=== PATIENT | female | born 1955 | race Caucasian/White ===

== ENCOUNTER 2018-02-26 17:55 | Emergency (ER) | payer MEDICARE, OTHER ==
[2018-02-26] MEDS ORDERED: HYDROmorphone 2 MG/ML SDV IM ONE (18:15)
[2018-02-26] MEDS ORDERED: Ondansetron 4 MG Tab.DIS PO SCH (18:30)
[2018-02-26] MEDS ORDERED: Acetaminophen/HYDROcodone 325-5 MG Tab PO ONE (19:13)
--- NOTE | 2018-03-01 11:29 | CR ---
INDICATION: Fall onto to thenar eminence. Hematoma, pain proximal 1st metacarpal. FOREARM : Frontal and lateral views of the right forearm were obtained 6-18- no comparisons. A very minimal degree of hypertrophic changes noted at the medial elbow joint compartment comparable with very minimal osteoarthritis. There also appears to be mild osteoarthritic changes at the metacarpophalangeal joint. IMPERSSION: 1. No acute fracture or dislocation. 2. Minimal osteoarthritis. MTDD
--- NOTE | 2018-03-01 11:33 | CR ---
INDICATION: Fall onto to thenar eminence. Hematoma, pain proximal 1st metacarpal. HAND: Three views of the right hand were obtained and reveal osteoarthritic changes at the interphalangeal joint of the thumb of mild degree and minimally at the 1st metacarpal joint and 1st metacarpophalangeal joint. Minimal osteoarthritic changes are noted at the DIP joints of the 3rd and 4th fingers. A definite fracture or dislocation was not identified. No joint effusion was suggested. IMPRESSION: 1. No acute fracture or dislocation. 2. Mild osteoarthritis. MTDD
--- NOTE | 2018-03-01 15:19 | ER ---
DATE SEEN: 02/26/2018 TIME SEEN: The patient was seen at 1808 hours. HISTORY OF PRESENT ILLNESS: The patient missed the step at home and fell down to the right hand and contused her thenar eminence. PAST MEDICAL HISTORY: Nonsignificant. PAST SURGICAL HISTORY: Abdominal hysterectomy, bilateral salpingo-oophorectomy, and right hip surgery. ALLERGIES: The patient is allergic to pollen and bee stings. MEDICATIONS: Levothyroxine for hypothyroidism. REVIEW OF SYSTEMS: Otherwise negative. SOCIAL HISTORY: The patient is a nonsmoker. PHYSICAL EXAMINATION: VITAL SIGNS: Blood pressure 144/72, heart rate 79 and regular, respirations 18, oxygen saturation 98%, 68.03 kilos with a BMI of 27.4 kg/m2. GENERAL: Alert woman, in mild distress, mild discomfort. She has a hematoma in her right palm of her hand. HEENT: PERRLA intact. Pharynx without abnormality. LUNGS: Clear without rales, rhonchi, or wheezes. HEART: S1, S2. No murmur. No irregular rate and rhythm. ABDOMEN: Soft. No guarding. No abdominal discomfort. EXTREMITIES: Right upper extremity, no pain in the distal radius, but has pain on the thenar eminence. No dysesthesia of fingers. Range of motion is decreased with a hematoma in the palmar surface. DIAGNOSTIC STUDIES: X-ray does not reveal fracture of hand or distal radius. DIAGNOSIS: Hematoma of right thenar eminence. PLAN: Return to clinic as needed, otherwise in a week to 10 days earlier if worse. She has Vicodin 8 tablets dispense, 1 every 4-6 hours for breakthrough pain, 1000 mg of Tylenol and 600 mg of ibuprofen taken every 6 hours. Elevate ice, and gradually increase the use of her hand as tolerated. /[id number]
== END 2018-02-26 19:25 | disposition home or self-care (01) ==
LOC: FB.ED 17:55
DX: S60.221A Contusion of right hand, initial encounter (principal); W10.9XXA Fall (on) (from) unspecified stairs and steps, initial encounter; E03.9 Hypothyroidism, unspecified; Z79.899 Other long term (current) drug therapy
CPT/HCPCS: 73090; 73130; 96372; 99283; A9270; J1170

== ENCOUNTER 2024-01-20 14:52 | Emergency (ER) | payer MEDICARE, OTHER ==
[2024-01-20] MEDS ORDERED: traMADol 50 MG Tab PO ONE (14:53)
[2024-01-20] MEDS: Sodium Chloride 0.9% 10 ML Syringe FLUSH PRN (15:45)
[2024-01-20] MEDS: traMADol 50 MG Tab PO ONE (15:47)
[2024-01-20 15:53] LABS: BASOPHILS ABSOLUTE AUTO 0.1 x10-3/uL (0.0-0.1); BASOPHILS PERCENT AUTO 0.9 % (0.2-1.5); EOSINOPHILS ABSOLUTE AUTO 0.1 x10-3/uL (0.0-0.8); EOSINOPHILS PERCENT AUTO 0.8 % (0.6-8.1); HEMATOCRIT 42.6 % (34.2-48.2); LYMPHOCYTES ABSOLUTE AUTO 2.9 x10-3/uL (1.0-4.4); LYMPHOCYTES PERCENT AUTO 35.6 % (18.4-52.1); MEAN CORPUSCULAR HEMOGLOBIN 30.5 pg (23.9-33.9); MEAN CORPUSCULAR HGB CONC 32.8 g/dL (31.9-34.8); MEAN CORPUSCULAR VOLUME 93.1 fL (76.7-100.5); MEAN PLATELET VOLUME 9.4 fL (7.1-12.4); MONOCYTES ABSOLUTE AUTO 0.6 x10-3/uL (0.3-1.0); NEUTROPHILS ABSOLUTE AUTO 4.5 x10-3/uL (1.5-6.3); NEUTROPHILS PERCENT AUTO 55.7 % (30.8-76.2); PLATELET COUNT,PLT 227 x10(3)uL (151-488); RED BLOOD CELL COUNT 4.57 x10(6)uL (3.60-5.20); RED CELL DISTRIBUTION WIDTH 14.7 % (12.3-16.5); WHITE BLOOD CELL COUNT,WBC 8.1 x10-3/uL (3.0-10.3)
[2024-01-20 15:57] LABS: BLOOD UREA NITROGEN,BUN 15 mg/dL (7-18); BUN/CREATININE RATIO 18.8 (9-20); CALCIUM 9.8 mg/dL (8.6-10.2); CARBON DIOXIDE,CO2 27 mmol/L (21-32); CHLORIDE,CL 105 mmol/L (100-110); CREATININE 0.8 mg/dL (0.55-1.02); ESTIMATED GFR 80 mL/min (>60); GLUCOSE RANDOM 126 mg/dL (80-116); POTASSIUM,K 4.9 mmol/L (3.5-5.3); SODIUM,NA 140 mmol/L (135-145)
[2024-01-20 16:03] LABS: A/G RATIO 0.9; ALANINE AMINOTRANSFERASE,ALT 17 U/L (12-36); ALBUMIN 3.7 g/dL (3.2-4.6); ALKALINE PHOSPHATASE 31 IU/L (56-112); ASPARTATE AMNIOTRANSFERASE,AST 18 IU/L (5-25); BILIRUBIN TOTAL 0.5 mg/dL (0.1-1.3); PROTEIN TOTAL,TP 7.8 g/dL (6.0-8.0)
[2024-01-20] MEDS: Iopamidol 755 Mg/ML 100 ML Bottle IV SCH (16:25)
== END 2024-01-20 17:50 | disposition home or self-care (01) ==
LOC: FB.ED 14:52
DX: G44.219 Episodic tension-type headache, not intractable (principal); R03.0 Elevated blood-pressure reading, without diagnosis of hypertension; Z90.710 Acquired absence of both cervix and uterus; Z79.899 Other long term (current) drug therapy; Z91.030 Bee allergy status
CPT/HCPCS: 36415; 71275; 80053; 85025; 85379; 86140; 93005; 93010; 99283; 99284; A9270-GY; J3490; Q9967